=== PATIENT | male | born 1965 | race Caucasian/White ===

== ENCOUNTER 2019-04-04 11:36 | Day surgery (SDC) | payer OTHER ==
[2019-04-04] MEDS ORDERED: FENTAnyl 50 MCG/ML VIAL (15:04)
[2019-04-04] MEDS ORDERED: PROPOFOL 20 ML (15:04)
== END 2019-04-04 15:30 | disposition home or self-care (01) ==
LOC: GIL 11:36
DX: K57.30 Diverticulosis of large intestine without perforation or abscess without bleeding (principal); E11.9 Type 2 diabetes mellitus without complications; I10 Essential (primary) hypertension; Z79.82 Long term (current) use of aspirin; Z79.84 Long term (current) use of oral hypoglycemic drugs
CPT/HCPCS: 45378; 82962